=== PATIENT | male | born 1980 | race Caucasian/White ===

== ENCOUNTER 2016-07-18 20:23 | Inpatient (IN) | payer MEDICAID, SELFPAY ==
[2016-07-18] MEDS ORDERED: cefTRIAXone 1 GM in Sodium Chloride 0.9% 100 ML IV ONE (21:26)
[2016-07-18] MEDS ORDERED: HYDROmorphone 1 MG/ML Syringe IVPUSH ONE (21:26)
[2016-07-18] MEDS ORDERED: Ondansetron 4 MG/2 ML SDV IVPUSH ONE (21:26)
[2016-07-18] MEDS ORDERED: methylPREDNISolone Sodium Succinate 125 MG/2 ML SDV IVPUSH ONE (21:29)
[2016-07-18] MEDS ORDERED: Sodium Chloride 0.9% 1,000 ML IV SCH (21:30)
--- NOTE | 2016-07-18 21:36 | EDM.PDOC ---
ED HPI ENT - General Chief Complaint: ENT Problem Stated Complaint: SORE THROAT Time Seen by Provider: 07/18/16 21:18 Source of Information: Reports: Patient History Limitations: Reports: No limitations - History of Present Illness INITIAL COMMENTS - FREE TEXT/NARRATIVE: Patient is a 36-year-old male who presents ED complaining of sore throat. States he developed sore throat this Tuesday with worsening of symptoms since. He notes there is increased swelling to his tonsils as well as increased redness and a white spots in the back of his throat. He has a lot of pain with swallowing. He has no difficulty with controlling his secretions. He has had a poor appetite and has felt mildly feverish with intermittent chills. Denies any previous similar episodes. Nor has he been on any recent antibiotics. Denies any nausea/vomiting, shortness of breath, chest pain, abdominal pain, recent sick exposures, documented fever, diarrhea, stiff neck, ear pain, or any additional complaints. Patient has no pertinent past medical history and is currently taking no medications. Timing/Duration: Reports: Constant, Getting worse Severity: severe Location: Reports: throat Quality: Reports: Ache, Sharp, Throbbing Improves with: Reports: None Worsens with: Reports: Other (Swallowing) Associated Symptoms: Reports: fever/chills (Tactile fever), loss of appetite Treatments LIME SLAKER: Reports: Other (see below) (none stated) - Related Data Allergies/ADRs: Allergies Allergy/AdvReac Type Severity Reaction Status Date / Time No Known Allergies Allergy Verified 07/18/16 20:42 Home Meds: Home Meds . [No Known Home Meds] 07/18/16 [History] Past Medical History Psychiatric History: Reports: Anxiety, Depression Social & Family History - Tobacco Use Smoking Status *Q: Current Every Day Smoker Years of Tobacco use: 15 Packs/Tins Daily: 1 - Caffeine Use Caffeine Use: Reports: Coffee, Soda, Tea - Recreational Drug Use Recreational Drug Type: Reports: Marijuana/Hashish Recreational Drug Use Frequency: Socially ED ROS ENT - Review of Systems Review Of Systems: See Below Constitutional: Reports: fever, chills, malaise, weakness, fatigue, diaphoresis , decreased appetite HEENT: Reports: Throat pain Respiratory: Denies: shortness of breath, cough, sputum Cardiovascular: Reports: No symptoms Endocrine: Reports: fatigue GI/Abdominal: Reports: No symptoms Musculoskeletal: Denies: neck pain ED EXAM, ENT - Physical Exam Exam: See Below Exam Limited By: No limitations General Appearance: alert, WD/WN, moderate distress Eye Exam: bilateral eye: EOMI, PERRL Ears: normal external exam, hearing grossly normal Nose: normal inspection, normal mucousa, no blood Mouth/Throat: Throat pain, Throat swelling, Tonsillar erythema, Tonsillar exudates, Tonsillar swelling, Uvular deviation, Other (Paratonsillar abscess with uvula deviation to the right. Hot Potato voice) Head: atraumatic, normocephalic Neck: normal inspection, supple, non-tender, full range of motion Respiratory/Chest: no respiratory distress Cardiovascular: normal peripheral pulses, regular rate, rhythm GI/Abdominal: normal bowel sounds, soft, non tender Back: normal inspection Neurological: alert, oriented, CN II-XII intact, normal cognition, no motor/ sensory deficits Psychiatric: normal affect, normal mood Skin: Warm, Dry, Intact, Normal color, No rash Course - Vital Signs Last Recorded V/S: Last Vital Signs Temp 98.8 F 07/18/16 20:38 Pulse 96 07/18/16 20:38 Resp 20 07/18/16 20:38 BP 139/80 07/18/16 20:38 Pulse Ox 99 07/18/16 20:38 - Orders/Labs/Meds Orders: Active Orders 24 hr Category Date Time Status Admission Status [Patient Status] [ADT] Routine ADT 07/18/16 23:36 Active Cardiac Monitoring [RC] . DIRECTED Care 07/18/16 23:36 Active Peripheral IV Care [RC] . DIRECTED Care 07/18/16 21:26 Active Soft Tissue Neck w Cont [CT] Stat Exams 07/18/16 21:27 Taken CULTURE BLOOD [BC] Stat Lab 07/18/16 21:45 Received CULTURE BLOOD [] Stat Lab 07/18/16 21:50 Received CULTURE STREP A CONFIRMATION [RM] Stat Lab 07/18/16 20:46 Results STREP SCRN A RAPID W CULT CONF [] Stat Lab 07/18/16 20:46 Results Clindamycin Phosphate [Cleocin] 900 mg Med 07/18/16 23:38 Active Sodium Chloride 0.9% [Normal Saline] 100 ml IV ONETIME Sodium Chloride 0.9% [Normal Saline] 1,000 ml Med 07/18/16 21:30 Active IV ASDIRECTED Sodium Chloride 0.9% [Saline Flush] Med 07/18/16 21:26 Active 10 ml FLUSH ASDIRECTED PRN Blood Culture x2 Reflex Set [OM.PC] Stat Oth 07/18/16 21:32 Ordered Peripheral IV Insertion Adult [OM.PC] Stat Oth 07/18/16 21:25 Ordered Medication Orders Sodium Chloride (Normal Saline) 1,000 mls @ 150 mls/hr IV ASDIRECTED CECILIA Last Admin: 07/18/16 21:46 Dose: 150 mls/hr Clindamycin Phosphate 900 mg/ (Sodium Chloride) 106 mls @ 100 mls/hr IV ONETIME ONE Stop: 07/19/16 00:41 Last Admin: 07/18/16 23:48 Dose: 100 mls/hr Sodium Chloride (Saline Flush) 10 ml FLUSH ASDIRECTED PRN PRN Reason: Keep Vein Open Last Admin: 07/18/16 22:26 Dose: 10 ml Admin: 07/18/16 21:51 Dose: 10 ml Labs: Laboratory Tests 07/18/16 07/18/16 07/18/16 Range/Units 21:45 21:45 21:45 WBC 17.97 H (4.23-9.07) K/mm3 RBC 4.70 (4.63-6.08) M/mm3 Hgb 14.7 (13.7-17.5) gm/L Hct 42.6 (40.1-51.0) % MCV 90.6 (79.0-92.2) fl MCH 31.3 (25.7-32.2) pg MCHC 34.5 (32.2-35.5) g/dl RDW Std Deviation 41.9 (35.1-43.9) fL Plt Count 302 (163-337) K/mm3 MPV 9.9 (9.4-12.3) fl Neut % (Auto) 70.7 H (34.0-67.9) % Lymph % (Auto) 17.2 L (21.8-53.1) % [place] % (Auto) 10.9 (5.3-12.2) % Eos % (Auto) 0.8 (0.8-7.0) Baso % (Auto) 0.2 (0.1-1.2) % Neut # 12.70 H (1.78-5.38) K/mm3 Lymph # 3.09 (1.32-3.57) K/mm3 [place] # 1.96 H (0.30-0.82) K/mm3 Eos # 0.15 (0.04-0.54) K/mm3 Baso # 0.04 (0.01-0.08) K/mm3 Manual Slide Review Normal smear Sodium 139 (136-145) mEq/L Potassium 3.7 (3.5-5.1) mEq/L Chloride 103 (98-107) mEq/L Carbon Dioxide 26 (21-32) mEq/L Anion Gap 13.7 (5-15) BUN 6 L (7-18) mg/dL Creatinine 0.8 (0.7-1.3) mg/dL Est Cr Clr Drug Dosing 134.34 mL/min Estimated GFR (MDRD) > 60 (>60) mL/min BUN/Creatinine Ratio 7.5 L (14-18) Glucose 123 H (74-106) mg/dL Calcium 8.7 (8.5-10.1) mg/dL Total Bilirubin 0.3 (0.2-1.0) mg/dL AST 17 (15-37) U/L ALT 18 (16-63) U/L Alkaline Phosphatase 91 (46-116) U/L C-Reactive Protein 8.0 H* (<1.0) mg/dL Total Protein 7.0 (6.4-8.2) g/dl Albumin 3.3 L (3.4-5.0) g/dl Globulin 3.7 gm/dL Albumin/Globulin Ratio 0.9 L (1-2) Monoscreen Negative (NEGATIVE) Meds: Medications Generic Name Dose Route Start Last Admin Trade Name Freq PRN Reason Stop Dose Admin Sodium Chloride 1,000 mls @ 150 mls/hr 07/18/16 21:30 07/18/16 21:46 Normal Saline IV 150 mls/hr ASDIRECTED CECILIA Administration Clindamycin Phosphate 900 mg/ 106 mls @ 100 mls/hr 07/18/16 23:38 07/18/16 23 :48 Sodium Chloride IV 07/19/16 00:41 100 mls/hr ONETIME ONE Administration Sodium Chloride 10 ml 07/18/16 21:26 07/18/16 22:26 Saline Flush FLUSH 10 ml ASDIRECTED PRN Administration Keep Vein Open Discontinued Medications Generic Name Dose Route Start Last Admin Trade Name Fernando PRN Reason Stop Dose Admin Hydromorphone HCl 0.5 mg 07/18/16 21:26 07/18/16 21:49 Dilaudid IVPUSH 07/18/16 21:27 0.5 mg ONETIME ONE Administration Ceftriaxone Sodium 1 gm/ 100 mls @ 200 mls/hr 07/18/16 21:26 07/18/16 22:03 Sodium Chloride IV 07/18/16 21:55 200 mls/hr ONETIME ONE Administration Iopamidol 80 ml 07/18/16 22:08 07/18/16 22:26 Isovue-300 (61%) IVPUSH 07/18/16 22:09 80 ml ONETIME ONE Administration Methylprednisolone Sodium Succinate 125 mg 07/18/16 21:29 07/18/16 21:48 Solu-Medrol IVPUSH 07/18/16 21:30 125 mg ONETIME ONE Administration Ondansetron HCl 4 mg 07/18/16 21:26 07/18/16 21:47 Zofran IVPUSH 07/18/16 21:27 4 mg ONETIME ONE Administration - Re-Assessments/Exams Free Text/Narrative Re-Assessment/Exam: Patient appears to have paratonsillar abscess. Ordered a peripheral IV with normal saline at 50 mL per hour, Dilaudid 0.5 mg IVP, Zofran 4 mg IVP, ceftriaxone 1 g IV, solumedrol 125 mg IVP. Initial labs and studies include CBC , chem 14, CRP, soft tissue neck CT with IV contrast. Strep screen was obtained and was negative. Strep culture pending. 07/18/16 21:35 Labs reviewed: White blood cell count 17.97 with a left shift. Chemistry panel is essentially normal. CRP 8.0. Strep screen is negative. 07/18/16 23:[address] Del Angel ENT specialist at [facility]. States in most cases these tests the patient's do not need to have the abscess drained. It is hard to tell at this point without seeing the films and assessing the patient. In most cases once patient received IV antibiotics and steroids there condition stabilizes without any further complications. Best course is to admit the patient for close monitoring with IV antibiotics and steroids. If any further worsening symptoms to transport to the [place] ER for further evaluation and treatment. Suggested ordering monospot. [place] screen pending. Shared my discussion with Dr. Del Angel with the patient. Patient is very concerned about going home due to the risk of increased swelling and airway compromise. Thus will discuss admission with Dr. Hess. 07/18/16 23:[address] Hess he has accepted the patient. Due to concerns of airway compromise will admit patient to inpatient status for one on one monitoring. In addition will start patient on clindamycin 900 mg IVP. 07/19/16 00:01 Monoscreen Negative. Departure - Departure Time of Disposition: 23:38 Disposition: Admitted As Inpatient 68 Condition: fair Clinical Impression: Tonsillar abscess Instructions: Abscess Referrals: PCP,None [Primary Care Provider] - - My Orders Last 24 Hours: My Active Orders 07/18/16 20:46 STREP SCRN A RAPID W CULT CONF [RM] Stat 07/18/16 21:25 Peripheral IV Insertion Adult [OM.PC] Stat 07/18/16 21:26 Peripheral IV Care [RC] . DIRECTED Sodium Chloride 0.9% [Saline Flush] 10 ml FLUSH ASDIRECTED PRN 07/18/16 21:27 Soft Tissue Neck w Cont [CT] Stat 07/18/16 21:30 Sodium Chloride 0.9% [Normal Saline] 1,000 ml IV ASDIRECTED 07/18/16 21:32 Blood Culture x2 Reflex Set [OM.PC] Stat 07/18/16 21:45 CULTURE BLOOD [BC] Stat 07/18/16 21:50 CULTURE BLOOD [BC] Stat 07/18/16 23:36 Admission Status [Patient Status] [ADT] Routine Cardiac Monitoring [RC] . DIRECTED 07/18/16 23:38 Clindamycin Phosphate [Cleocin] 900 mg Sodium Chloride 0.9% [Normal Saline] 100 ml IV ONETIME - Assessment/Plan Last 24 Hours: My Active Orders 07/18/16 20:46 STREP SCRN A RAPID W CULT CONF [RM] Stat 07/18/16 21:25 Peripheral IV Insertion Adult [OM.PC] Stat 07/18/16 21:26 Peripheral IV Care [RC] . DIRECTED Sodium Chloride 0.9% [Saline Flush] 10 ml FLUSH ASDIRECTED PRN 07/18/16 21:27 Soft Tissue Neck w Cont [CT] Stat 07/18/16 21:30 Sodium Chloride 0.9% [Normal Saline] 1,000 ml IV ASDIRECTED 07/18/16 21:32 Blood Culture x2 Reflex Set [OM.PC] Stat 07/18/16 21:45 CULTURE BLOOD [BC] Stat 07/18/16 21:50 CULTURE BLOOD [BC] Stat 07/18/16 23:36 Admission Status [Patient Status] [ADT] Routine Cardiac Monitoring [RC] . DIRECTED 07/18/16 23:38 Clindamycin Phosphate [Cleocin] 900 mg Sodium Chloride 0.9% [Normal Saline] 100 ml IV ONETIME
[2016-07-18] MEDS: Sodium Chloride 0.9% 10 ML Syringe FLUSH PRN ×2 (21:51→22:26)
[2016-07-18] MEDS ORDERED: Iopamidol 612 MG/ML 100 ML Bottle IVPUSH ONE (22:08)
[2016-07-18] MEDS ORDERED: Clindamycin Phosphate 900 MG in Sodium Chloride 0.9% 100 ML IV ONE (23:38)
[2016-07-19] MEDS ORDERED: Acetaminophen 325 MG Tab PO PRN (00:29)
[2016-07-19] MEDS ORDERED: Acetaminophen/HYDROcodone 325-5 MG Tab PO PRN (00:29)
[2016-07-19] MEDS ORDERED: HYDROmorphone 0.5 MG/0.5 ML Syringe IVPUSH PRN (00:29)
[2016-07-19] MEDS ORDERED: Dextrose 5%-0.45% NaCl 1,000 ML IV SCH (00:30)
--- NOTE | 2016-07-19 00:30 | PCM.HP ---
H&P History of Present Illness - General Date of Service: 07/19/16 Admit Problem/Dx: Admission Diagnosis/Problem Admission Diagnosis/Problem Abscess of tonsil Source of Information: Patient, Provider, RN notes reviewed History Limitations: Reports: No limitations - History of Present Illness Initial Comments - Free Text/Narative: Patient is a 36 yo white male with past medical hx/o Anxiety and Depression who comes in with complaints of sore throat that started this past Tuesday and has since progressively gotten worse. He repost increased swelling and redness at the back of his throat. he has difficulty swallowing. He has full control with his oral secretions. His chief of complaints is associated with subjective fever and chills. He denies any nausea, vomiting, no skin rash. His initial lab work shows a CBC remarkable for WBC 17.97 with Neutrophils of 17.2. His chemistry is remarkable for BS 123, CRP 8 and Albumin 3.3. He is mono spot negative. Rapid strep strep screening is negative. His Neck CT scan shows large soft tissue edema of the palatine tonsil and uvula with developing 3 cm abscess n the left palatine tonsil w/o airway compromise. Patient was referred to me for admission related to Tonsilar Abscess. Tooth/Teeth Pain Score (Numeric/FACES): 8 - Related Data Allergies/Adverse Reactions: Allergies Allergy/AdvReac Type Severity Reaction Status Date / Time No Known Allergies Allergy Verified 07/18/16 20:42 Home Medications: Home Meds . [No Known Home Meds] 07/18/16 [History] Past Medical History Psychiatric History: Reports: Anxiety, Depression Social & Family History - Tobacco Use Smoking Status *Q: Current Every Day Smoker Years of Tobacco use: 15 Packs/Tins Daily: 1 - Caffeine Use Caffeine Use: Reports: Coffee, Soda, Tea - Recreational Drug Use Recreational Drug Type: Reports: Marijuana/Hashish Recreational Drug Use Frequency: Socially H&P Review of Systems - Review of Systems: Review Of Systems: See Below General: Reports: fever, chills, malaise, weakness, fatigue, diaphoresis, decreased appetite HEENT: Reports: sore throat Pulmonary: Denies: shortness of breath, cough Cardiovascular: Denies: chest pain, palpitations, dyspnea on exertion Gastrointestinal: Reports: Difficulty swallowing. Denies: Abdominal pain, Nausea, Vomiting Genitourinary: Reports: no symptoms Musculoskeletal: Denies: neck pain Skin: Denies: pruritis, rash, erythema, lesions Psychiatric: Denies: depression, anxiety, hallucinations Neurological: Denies: confusion, seizure, weakness Hematologic/Lymphatic: Reports: no symptoms Immunologic: Reports: no symptoms Exam - Exam Exam: See Below - Vital Signs Vital Signs: Last Vital Signs Temp 37.1 C 07/18/16 20:38 Pulse 96 07/18/16 20:38 Resp 20 07/18/16 20:38 BP 139/80 07/18/16 20:38 Pulse Ox 99 07/18/16 20:38 Weight: 77.111 kg - Exam General: alert, oriented, cooperative, mild distress HEENT: Conjunctiva clear, EACs clear, EOMI, Hearing intact, Mucosa moist & pink , Nares patent, Normal nasal septum, Posterior pharynx clear (partially able to view), Other (Tonsi: edema, exudates, erythema associated with uvular deviation) , PERRLA Neck: supple, trachea midline, 2+ carotid pulse wo bruit, full range of motion, lymphadenopathy (left neck), other Lungs: Clear to auscultation, Normal respiratory effort Cardiovascular: regular rate, regular rhythm Abdomen: normal bowel sounds, soft. No: organomegaly (Male) Exam: Deferred Rectal (Males) Exam: Deferred Back Exam: normal inspection, full range of motion Extremities: normal inspection, normal pulses. No: clubbing, cyanosis, calf tenderness, edema Peripheral Pulses: 3+: posterior tibial (L), posterior tibial (R), dorsalis pedis (L), dorsalis pedis (R) Skin: warm, dry, intact Neuro Extensive - Mental Status: oriented x3, normal cognition, memory intact Neuro Extensive - Motor, Sensory, Reflexes: CN II-XII intact, normal gait Psychiatric: alert, normal affect, normal mood - Patient Data Result Diagrams: 07/18/16 21:45 07/18/16 21:45 *Q Meaningful Use (ADM) - VTE *Q VTE Criteria *Q: - Stroke *Q Stroke Criteria *Q: - AMI *Q AMI Criteria *Q: Problem List Initiated/Reviewed/Updated: Yes Orders Last 24hrs: Active Orders 24 hr Category Date Time Status Clindamycin Phosphate [Cleocin] 900 mg Med 07/18/16 23:38 Active Sodium Chloride 0.9% [Normal Saline] 100 ml IV ONETIME Medication Orders Sodium Chloride (Normal Saline) 1,000 mls @ 150 mls/hr IV ASDIRECTED CECILIA Last Admin: 07/18/16 21:46 Dose: 150 mls/hr Clindamycin Phosphate 900 mg/ (Sodium Chloride) 106 mls @ 100 mls/hr IV ONETIME ONE Stop: 07/19/16 00:41 Last Admin: 07/18/16 23:48 Dose: 100 mls/hr Sodium Chloride (Saline Flush) 10 ml FLUSH ASDIRECTED PRN PRN Reason: Keep Vein Open Last Admin: 07/18/16 22:26 Dose: 10 ml Admin: 07/18/16 21:51 Dose: 10 ml Assessment/Plan Comment:: Assessment/Plan: Acute: Delfina-Tonsilar/Tonsilar Abscess - CT Scan: Large amount of soft tissues swelling of the left palatine tonsil and uvula with a developing 3 cm abscess in the left palatine tonsil. No airway compromise - No airway compromise by visual examination - Dysphagia with both solid and liquid - ED provider [place]: recommended patient be admitted for close monitoring and medically treatment with IV antibiotics and Steroids - IV Rocephin and Clindamycin, IV Steroids, Naproxen for Anti-inflammation - [place] spot negative - NPO except ice chips and sips of water +/- oral pills if tolerated - Follow up with ENT after discharge Leukocytosis w/ Neutrophils level of 12.70 - WBC 18.97 2/2 Above - CRP is 8 Hyperglycemia - BS 123 - Likely 2/2 stress - Will monitor Tobacco Dependence - Smoke 1ppd - Nicotine Patch daily Chronic: Anxiety and Depression Plan: Admit to ICU for close monitoring He is high risk for airway compromise due to tonsilar abscess Routine AM Labs RT consult-monitor for airway SW/CM for d/c planning Code status:1
[2016-07-19] MEDS ORDERED: Albuterol/Ipratropium 3.0-0.5 MG/3 ML Neb Soln NEB PRN (00:31)
[2016-07-19] MEDS ORDERED: Bisacodyl 5 MG Tab PO PRN (00:31)
[2016-07-19] MEDS ORDERED: Promethazine 12.5 MG in Sodium Chloride 0.9% 50 ML IV PRN (00:31)
[2016-07-19] MEDS ORDERED: Ondansetron 4 MG/2 ML SDV IV PRN (00:31)
[2016-07-19] MEDS ORDERED: Temazepam 15 MG Cap PO PRN (00:31)
[2016-07-19] MEDS: Dextrose 5%-0.9% NaCl 1,000 ML IV SCH ×2 (03:30→17:49)
[2016-07-19] MEDS: Clindamycin Phosphate 600 MG in Sodium Chloride 0.9% 100 ML IV SCH ×3 (04:30→19:36)
--- NOTE | 2016-07-19 08:40 | PCM.PN ---
- General Info Date of Service: 07/19/16 Admission Dx/Problem (Free Text): Admission Diagnosis/Problem Admission Diagnosis/Problem Abscess of tonsil Subjective Update: Follow Up Functional Status: Reports: pain controlled, ambulating, urinating. Denies: new symptoms - Review of Systems General: Denies: fever, weakness, fatigue, malaise, chills HEENT: Reports: other (dysphagia). Denies: sore throat Pulmonary: Denies: shortness of breath Cardiovascular: Denies: chest pain, palpitations, dyspnea on exertion Gastrointestinal: Denies: Abdominal pain Genitourinary: Reports: no symptoms Musculoskeletal: Reports: no symptoms Skin: Denies: bruising, pruritis, rash Neurological: Denies: confusion Psychiatric: Denies: depression, anxiety, hallucinations Systems Review Comment:: No overnight or acute issues. He has no new complaints. No trouble with breathing or respiration. - Patient Data Vitals - most recent: Last Vital Signs Temp 37.1 C 07/19/16 04:00 Pulse 52 L 07/19/16 04:00 Resp 16 07/19/16 04:00 BP 119/70 07/19/16 04:00 Pulse Ox 99 07/19/16 04:00 Weight - most recent: 77.1 kg I&O - last 24 hours: Intake & Output 07/18/16 07/19/16 07/19/16 22:59 06:59 14:59 Intake Total 1350 Output Total 0 Balance 1350 Lab Results last 24 hrs: Laboratory Results - last 24 hr 07/19/16 07/19/16 Range/Units 04:19 04:19 WBC 16.12 H (4.23-9.07) K/mm3 RBC 4.93 (4.63-6.08) M/mm3 Hgb 15.4 (13.7-17.5) gm/L Hct 44.9 (40.1-51.0) % MCV 91.1 (79.0-92.2) fl MCH 31.2 (25.7-32.2) pg MCHC 34.3 (32.2-35.5) g/dl RDW Std Deviation 42.6 (35.1-43.9) fL Plt Count 293 (163-337) K/mm3 MPV 10.2 (9.4-12.3) fl Neut % (Auto) 91.5 H (34.0-67.9) % Lymph % (Auto) 7.4 L (21.8-53.1) % [place] % (Auto) 0.9 L (5.3-12.2) % Eos % (Auto) 0 L (0.8-7.0) Baso % (Auto) 0.1 (0.1-1.2) % Neut # 14.75 H (1.78-5.38) K/mm3 Lymph # 1.19 L (1.32-3.57) K/mm3 [place] # 0.15 L (0.30-0.82) K/mm3 Eos # 0.00 L (0.04-0.54) K/mm3 Baso # 0.01 (0.01-0.08) K/mm3 Manual Slide Review Abnormal smear Sodium 139 (136-145) mEq/L Potassium 4.1 (3.5-5.1) mEq/L Chloride 105 (98-107) mEq/L Carbon Dioxide 25 (21-32) mEq/L Anion Gap 13.1 (5-15) BUN 6 L (7-18) mg/dL Creatinine 0.8 (0.7-1.3) mg/dL Est Cr Clr Drug Dosing 134.34 mL/min Estimated GFR (MDRD) > 60 (>60) mL/min BUN/Creatinine Ratio 7.5 L (14-18) Glucose 161 H (74-106) mg/dL Calcium 8.6 (8.5-10.1) mg/dL Magnesium 2.0 (1.8-2.4) mg/dl C-Reactive Protein 8.4 H* (<1.0) mg/dL Med Orders - Current: Current Medications Acetaminophen (Tylenol) 650 mg PO Q4H PRN PRN Reason: Pain (Mild 1-3)/fever Acetaminophen/Hydrocodone Bitart ([place] 325-5 Mg) 1 tab PO Q4H PRN PRN Reason: Pain (moderate 4-6) Albuterol/Ipratropium (Duoneb 3.0-0.5 Mg/3 Ml) 3 ml NEB Q4H PRN PRN Reason: Shortness Of Breath/wheezing Bisacodyl (Dulcolax) 5 mg PO DAILY PRN PRN Reason: Constipation Enoxaparin Sodium (Lovenox) 40 mg SUBCUT DAILY [facility] Hydromorphone HCl (Dilaudid) 0.5 mg IVPUSH Q2H PRN PRN Reason: Pain (severe 7-10) Stop: 07/23/16 23:59 Sodium Chloride (Normal Saline) 1,000 mls @ 150 mls/hr IV ASDIRECTED [facility] Last Admin: 07/18/16 21:46 Dose: 150 mls/hr Dextrose/Sodium Chloride (Dextrose 5%-1/2 Ns) 1,000 mls @ 125 mls/hr IV ASDIRECTED [facility] Promethazine HCl 12.5 mg/ (Sodium Chloride) 50.5 mls @ 100 mls/hr IV Q6H PRN PRN Reason: Nausea/Vomiting Clindamycin Phosphate 600 mg/ (Sodium Chloride) 104 mls @ 100 mls/hr IV Q6H [facility] Last Admin: 07/19/16 04:30 Dose: 100 mls/hr Dextrose/Sodium Chloride (Dextrose 5%-Normal Saline) 1,000 mls @ 125 mls/hr IV ASDIRECTED [facility] Last Admin: 07/19/16 03:30 Dose: 125 mls/hr Ceftriaxone Sodium 2 gm/ (Sodium Chloride) 100 mls @ 200 mls/hr IV Q24H [facility] Methylprednisolone Sodium Succinate (Solu-Medrol) 125 mg IVPUSH DAILY [facility] Miscellaneous Information (Remove Patch) 1 ea TRDERM DAILY [facility] Naproxen (Naprosyn) 500 mg PO Q12HR [facility] Nicotine (Habitrol) 21 mg TRDERM DAILY [facility] Ondansetron HCl (Zofran) 4 mg IV Q6H PRN PRN Reason: Nausea/Vomiting Saccharomyces Boulardii (Florastor) 250 mg PO TID [facility] Senna/Docusate Sodium (Senna Plus) 1 tab PO BID PRN PRN Reason: Constipation Sodium Chloride (Saline Flush) 10 ml FLUSH ASDIRECTED PRN PRN Reason: Keep Vein Open Last Admin: 07/18/16 22:26 Dose: 10 ml Temazepam (Restoril) 30 mg PO BEDTIME PRN PRN Reason: Sleep Discontinued Medications Ceftriaxone Sodium (Rocephin) 2 gm IV Q24H [facility] Hydromorphone HCl (Dilaudid) 0.5 mg IVPUSH ONETIME ONE Stop: 07/18/16 21:27 Last Admin: 07/18/16 21:49 Dose: 0.5 mg Ceftriaxone Sodium 1 gm/ (Sodium Chloride) 100 mls @ 200 mls/hr IV ONETIME ONE Stop: 07/18/16 21:55 Last Admin: 07/18/16 22:03 Dose: 200 mls/hr Clindamycin Phosphate 900 mg/ (Sodium Chloride) 106 mls @ 100 mls/hr IV ONETIME ONE Stop: 07/19/16 00:41 Last Admin: 07/18/16 23:48 Dose: 100 mls/hr Iopamidol (Isovue-300 (61%)) 80 ml IVPUSH ONETIME ONE Stop: 07/18/16 22:09 Last Admin: 07/18/16 22:26 Dose: 80 ml Methylprednisolone Sodium Succinate (Solu-Medrol) 125 mg IVPUSH ONETIME ONE Stop: 07/18/16 21:30 Last Admin: 07/18/16 21:48 Dose: 125 mg Ondansetron HCl (Zofran) 4 mg IVPUSH ONETIME ONE Stop: 07/18/16 21:27 Last Admin: 07/18/16 21:47 Dose: 4 mg - Exam General: alert, oriented, cooperative, no acute distress HEENT: Pupils equal, Pupils reactive, EOMI, Mucous membr. moist/pink Neck: supple, trachea midline, no JVD, no thyromegaly, lymphadenopathy Lungs: Clear to auscultation, Normal respiratory effort Cardiovascular: regular rate, regular rhythm Abdomen: bowel sounds present, soft, no tenderness, no distension (Male) Exam: Deferred Back Exam: normal inspection, full range of motion Extremities: no edema, normal pulses, no tenderness/swelling, no clubbing, no cyanosis, no calf tenderness Peripheral Pulses: 3+: posterior tibial (L), posterior tibial (R), dorsalis pedis (L), dorsalis pedis (R) Skin: warm, dry, intact Neurological: no new focal deficit Psy/Mental Status: alert, normal affect, normal mood - Problem List Review Problem List Initiated/Reviewed/Updated: Yes - My Orders Last 24 Hours: My Active Orders 07/19/16 00:29 Up With Assistance [RC] ASDIRECTED Up ad Dora [RC] ASDIRECTED Acetaminophen [Tylenol] 650 mg PO Q4H PRN Acetaminophen/HYDROcodone [[place] 325-5 MG] 1 tab PO Q4H PRN HYDROmorphone [Dilaudid] 0.5 mg IVPUSH Q2H PRN Resuscitation Status Routine 07/19/16 00:30 Oxygen Therapy [RC] ASDIRECTED VTE/DVT Education [RC] DAILY Vital Signs [RC] Q4HR Dextrose 5%-0.45% NaCl [Dextrose 5%-1/2 NS] 1,000 ml IV ASDIRECTED 07/19/16 00:31 RT Aerosol Therapy [RC] ASDIRECTED Albuterol/Ipratropium [DuoNeb 3.0-0.5 MG/3 ML] 3 ml NEB Q4H PRN Bisacodyl [Dulcolax] 5 mg PO DAILY PRN Docusate Sodium/Sennosides [Senna Plus] 1 tab PO BID PRN Ondansetron [Zofran] 4 mg IV Q6H PRN Promethazine [Phenergan] 12.5 mg Sodium Chloride 0.9% [Normal Saline] 50 ml IV Q6H Temazepam [Restoril] 30 mg PO BEDTIME PRN 07/19/16 00:32 Consult to Case Management [CONS] Routine Consult to Payment Specialist [CONS] Routine Respiratory Care Assess and Treatment [CONS] Routine 07/19/16 01:00 Dextrose 5%-0.9% NaCl [Dextrose 5%-Normal Saline] 1,000 ml IV ASDIRECTED 07/19/16 05:30 Clindamycin Phosphate [Cleocin] 600 mg Sodium Chloride 0.9% [Normal Saline] 100 ml IV Q6H 07/19/16 09:00 Enoxaparin [Lovenox] 40 mg SUBCUT DAILY Naproxen [Naprosyn] 500 mg PO Q12HR Nicotine [Habitrol] 21 mg TRDERM DAILY Saccharomyces Boulardii [Florastor] 250 mg PO TID methylPREDNISolone Sod Succ [Solu-MEDROL] 125 mg IVPUSH DAILY 07/19/16 21:00 cefTRIAXone [Rocephin] 2 gm Sodium Chloride 0.9% [Normal Saline] 100 ml IV Q24H 07/19/16 Dinner Nothing per Oral Now Diet [DIET] 07/20/16 05:11 BASIC METABOLIC PANEL,BMP [CHEM] AM C-REACTIVE PROTEIN [CHEM] AM CBC WITH AUTO DIFF [HEME] AM MAGNESIUM [CHEM] AM 07/20/16 09:00 Remove Patch 1 ea TRDERM DAILY 07/21/16 05:11 BASIC METABOLIC PANEL,BMP [CHEM] AM C-REACTIVE PROTEIN [CHEM] AM CBC WITH AUTO DIFF [HEME] AM MAGNESIUM [CHEM] AM 07/22/16 05:11 BASIC METABOLIC PANEL,BMP [CHEM] AM C-REACTIVE PROTEIN [CHEM] AM CBC WITH AUTO DIFF [HEME] AM MAGNESIUM [CHEM] AM - Plan Plan:: Assessment/Plan: Acute: Delfina-Tonsilar/Tonsilar Abscess, Improving, has more visibility with airway compared to yesterday - CT Scan: Large amount of soft tissues swelling of the left palatine tonsil and uvula with a developing 3 cm abscess in the left palatine tonsil. No airway compromise - No airway compromise by visual examination - Dysphagia with both solid and liquid - ED provider consulted ENT in [place]: recommended patient be admitted for close monitoring and medically treatment with IV antibiotics and Steroids - IV Rocephin and Clindamycin, IV Steroids, Naproxen for Anti-inflammation - [place] spot negative - NPO except ice chips and sips of water +/- oral pills if tolerated - Follow up with ENT after discharge Leukocytosis w/ Neutrophils level of 12.70 - WBC 18.97---> 16.12 (he is getting steroids) - CRP is 8 ----> 8.4 Hyperglycemia - BS 123 ----> 161 - Likely 2/2 stress vs steroids - Will monitor Tobacco Dependence - Smoke 1ppd - Nicotine Patch daily Chronic: Anxiety and Depression Plan: He is clinically stable Transfer to Med-Surg w/ Tele Clear liquids and advance as tolerated Routine AM Labs RT consult-monitor for airway SW/CM for d/c planning Possible d/c in 1-2 days Code status:1
[2016-07-19] MEDS ORDERED: Enoxaparin 30 MG/0.3 ML Syringe SUBCUT SCH (09:00)
[2016-07-19] MEDS ORDERED: Saccharomyces Boulardii (Probiotic) 250 MG Cap PO SCH (09:00)
[2016-07-19] MEDS: Nicotine 21 MG/24 Hr Patch TRDERM SCH (10:14)
[2016-07-19] MEDS: methylPREDNISolone Sodium Succinate 125 MG/2 ML SDV IVPUSH SCH (10:15)
[2016-07-19] MEDS: Enoxaparin 40 MG/0.4 ML Syringe SUBCUT SCH (10:15)
[2016-07-19] MEDS: Naproxen 500 MG Tab PO SCH ×2 (10:15→21:26)
--- NOTE | 2016-07-19 11:14 | CT ---
CT neck Technique: Multiple axial sections through the neck were obtained. Intravenous contrast was utilized. Reconstructed coronal and sagittal images were reviewed. Comparison: No previous study. Findings: Soft tissue swelling identified within the left peritonsillar region. Diffuse soft tissue swelling seen within the uvula. Low-density is noted within the uvula as well as to the left side of the palatine area and posterior oropharynx. Largest low-density finding lies within the left peritonsillar region measuring about 3.3 cm in size. Low-density areas likely represent phlegmon and possible early abscess. Multiple lymph nodes seen within the neck which are likely reactive from the peritonsillar and oral infection. Submandibular and parotid salivary glands are unremarkable. Minimal low-density area noted within the thyroid gland possibly due to small nodule versus artifact. This is felt to be incidental. Bone window settings were reviewed which appear within normal limits for the patient's age. Impression: 1. Soft tissue swelling in the area of the left peritonsillar region with large amount of soft tissue swelling seen within the uvula. Low density is seen within the left peritonsillar region as well as within the uvula as well as within the posterior oropharynx which is felt compatible with phlegmon and possibly early abscess formation. 2. Multiple lymph nodes which are likely reactive and due to the peritonsillar and oral infection. Diagnostic code #5 Agree with preliminary report issued by [employer] (preliminary report dictated on 07/18/16, 11:48 PM Central Time)
[2016-07-19] MEDS ORDERED: cefTRIAXone 2 GM Vial IV SCH (21:00)
[2016-07-19] MEDS ORDERED: cefTRIAXone 2 GM in Sodium Chloride 0.9% 100 ML IV SCH (21:00)
[2016-07-19] MEDS: Saccharomyces Boulardii (Probiotic) 250 MG Cap PO SCH (21:25)
[2016-07-20] MEDS: Clindamycin Phosphate 600 MG in Sodium Chloride 0.9% 100 ML IV SCH ×4 (00:26→10:34)
[2016-07-20] MEDS: Dextrose 5%-0.9% NaCl 1,000 ML IV SCH (05:23)
--- NOTE | 2016-07-20 06:51 | PCM.DCSUM1 ---
Discharge Summary - Hospital Course Brief History: Patient is a 36 yo white male with past medical hx/o Anxiety and Depression who comes in with complaints of sore throat progressively gotten worse and was found to have tonsillar abscess. - Discharge Data Discharge Date: 07/20/16 Discharge Disposition: Home, Self-Care 01 Condition: Good - Discharge Diagnosis/Problem(s) (1) Tonsillar abscess SNOMED Code(s): 10587830 ICD Code: J36 - PERITONSILLAR ABSCESS Status: Acute (2) Nicotine dependence SNOMED Code(s): 28039959 ICD Code: F17.200 - NICOTINE DEPENDENCE, UNSPECIFIED, UNCOMPLICATED Status : Acute Qualifiers: Nicotine product type: cigarettes - Patient Summary/Data Operative Procedure(s) Performed: None Complications: None Consults: Consultations 07/19/16 00:32 Consult to Case Management [CONS] Routine Consult to Bridge Instructor [CONS] Routine Respiratory Care Assess and Treatment [CONS] Routine Hospital Course: Patient was primarily admitted for tonsillar abscess noted on CT scan. ENT (Dr. Del Angel) was consulted from [place] and patient was placed on IV ATB, Steroids and Supportive care. Patient improved on this regimen. His hospital course uncomplicated. He is now ready for discharge. He will continue with oral clindamycin 300 mg po Q6 along with probiotic for 6 more days. he will also leave with medrol dose pack and naproxen for anti- inflammatory/edema agent. Patient was advised to stop smoking for now until his infection resolves. He was further advised to follow up with ENT as scheduled. Patient expressed understanding an din agreement with the plans as discussed above. All questions were answered. - Patient Instructions Diet: Usual Diet as Tolerated Activity: As Tolerated Driving: May Drive Today Showering/Bathing: May Shower Notify Provider of: Fever, Increased Pain, Swelling and Redness, Nausea and/or Vomiting Other/Special Instructions: - Please take all medications as directed. - Quit smoking. - Keep your scheduled vist with ENT and follow up appointment with your doctor - Discharge Plan Prescriptions/Med Rec: Acetaminophen/HYDROcodone [[place] 325-5 MG] 1 tab PO Q4H #15 tablet Clindamycin HCl [Cleocin] 450 mg PO Q6H #24 cap Lactobac Cmb #3/Fos/Pantethine [Probiotic & Acidophilus] 1 each PO TID #18 capsule Naproxen Sodium [Naproxen Sodium ER] 500 mg PO BID #10 tablet.er Nicotine [Habitrol] 21 mg TRDERM DAILY 15 Days Omeprazole 20 mg PO BIDAC #10 cap.cr methylPREDNISolone [Medrol] 4 mg PO ASDIRECTED #1 dosepk Home Medications: Home Meds Acetaminophen/HYDROcodone [[place] 325-5 MG] 1 tab PO Q4H #15 tablet 07/20/16 [Rx] Clindamycin HCl [Cleocin] 450 mg PO Q6H #24 cap 07/20/16 [Rx] Lactobac Cmb #3/Fos/Pantethine [Probiotic & Acidophilus] 1 each PO TID #18 capsule 07/20/16 [Rx] Naproxen Sodium [Naproxen Sodium ER] 500 mg PO BID #10 tablet.er 07/20/16 [Rx] Nicotine [Habitrol] 21 mg TRDERM DAILY 15 Days 07/20/16 [Rx] Omeprazole 20 mg PO BIDAC #10 cap.cr 07/20/16 [Rx] methylPREDNISolone [Medrol] 4 mg PO ASDIRECTED #1 dosepk 07/20/16 [Rx] Patient Handouts: Smoking Cessation, Tips for Success, [id number], Abscess Referrals: Bradley Del Angel MD [Ordering Only Provider] - 08/02/16 8:00 am (Please show up 15 mins early. ) PCP,Kofi [Primary Care Provider] - 07/28/16 12:15 pm (Kylie Robles. Please show up 15 mins early. ) - Discharge Summary/Plan Comment DC Time >30 min.: No Discharge Summary/Plan Comment: Discharge to Home - General Info Date of Service: 07/20/16 Admission Dx/Problem (Free Text: Admission Diagnosis/Problem Admission Diagnosis/Problem Abscess of tonsil Subjective Update: Follow Up Functional Status: Reports: pain controlled, tolerating diet, ambulating, urinating. Denies: new symptoms - Review of Systems General: Denies: fever, weakness, fatigue, malaise, chills HEENT: Reports: no symptoms Pulmonary: Denies: shortness of breath, pleuritic chest pain, cough, wheezing Cardiovascular: Denies: chest pain, palpitations, dyspnea on exertion, edema Gastrointestinal: Denies: Abdominal pain, Difficulty swallowing, Nausea, Vomiting Genitourinary: Reports: no symptoms Musculoskeletal: Denies: neck pain Skin: Denies: cyanosis, bruising, pruritis, rash Neurological: Denies: confusion, weakness Psychiatric: Denies: depression, anxiety, hallucinations Systems Review Comment: No overnight or acute issues. He slept well. He has no new complaints. - Patient Data Vitals - Most Recent: Last Vital Signs Temp 36.8 C 07/20/16 04:00 Pulse 58 L 07/20/16 04:00 Resp 14 07/20/16 04:00 BP 115/72 07/20/16 04:00 Pulse Ox 99 07/20/16 04:00 Weight - Most Recent: 72.348 kg I&O - Last 24 hours: Intake & Output 07/19/16 07/19/16 07/20/16 14:59 22:59 06:59 Intake Total 690 1850 2411 Balance 690 1850 2411 Lab Results - Last 24 hrs: Laboratory Results - last 24 hr 07/19/16 07/20/16 Range/Units 04:19 04:49 WBC 16.12 H 20.02 H (4.23-9.07) K/mm3 RBC 4.93 4.83 (4.63-6.08) M/mm3 Hgb 15.4 15.0 (13.7-17.5) gm/L Hct 44.9 44.1 (40.1-51.0) % MCV 91.1 91.3 (79.0-92.2) fl MCH 31.2 31.1 (25.7-32.2) pg MCHC 34.3 34.0 (32.2-35.5) g/dl RDW Std Deviation 42.6 42.3 (35.1-43.9) fL Plt Count 293 281 (163-337) K/mm3 MPV 10.2 10.8 (9.4-12.3) fl Neut % (Auto) 91.5 H 75.1 H (34.0-67.9) % Lymph % (Auto) 7.4 L 15.7 L (21.8-53.1) % [place] % (Auto) 0.9 L 8.9 (5.3-12.2) % Eos % (Auto) 0 L 0 L (0.8-7.0) Baso % (Auto) 0.1 0.1 (0.1-1.2) % Neut # 14.75 H 15.02 H (1.78-5.38) K/mm3 Lymph # 1.19 L 3.15 (1.32-3.57) K/mm3 [place] # 0.15 L 1.78 H (0.30-0.82) K/mm3 Eos # 0.00 L 0.01 L (0.04-0.54) K/mm3 Baso # 0.01 0.02 (0.01-0.08) K/mm3 Manual Slide Review Abnormal smear Abnormal smear BELTRAN Results - Last 24 hrs: Microbiology 07/19/16 18:19 Influenza Type A Antigen Screen - Final Nasal, Right NEGATIVE INFLUENZA A VIRUS AG Influenza Type B Antigen Screen - Final NEGATIVE INFLUENZA B VIRUS AG Med Orders - Current: Current Medications Acetaminophen (Tylenol) 650 mg PO Q4H PRN PRN Reason: Pain (Mild 1-3)/fever Acetaminophen/Hydrocodone Bitart ([place] 325-5 Mg) 1 tab PO Q4H PRN PRN Reason: Pain (moderate 4-6) Albuterol/Ipratropium (Duoneb 3.0-0.5 Mg/3 Ml) 3 ml NEB Q4H PRN PRN Reason: Shortness Of Breath/wheezing Bisacodyl (Dulcolax) 5 mg PO DAILY PRN PRN Reason: Constipation Enoxaparin Sodium (Lovenox) 40 mg SUBCUT DAILY [facility] Last Admin: 07/19/16 10:15 Dose: 40 mg Hydromorphone HCl (Dilaudid) 0.5 mg IVPUSH Q2H PRN PRN Reason: Pain (severe 7-10) Stop: 07/23/16 23:59 Dextrose/Sodium Chloride (Dextrose 5%-1/2 Ns) 1,000 mls @ 125 mls/hr IV ASDIRECTED [facility] Promethazine HCl 12.5 mg/ (Sodium Chloride) 50.5 mls @ 100 mls/hr IV Q6H PRN PRN Reason: Nausea/Vomiting Clindamycin Phosphate 600 mg/ (Sodium Chloride) 104 mls @ 100 mls/hr IV Q6H [facility] Last Admin: 07/20/16 05:22 Dose: 100 mls/hr Dextrose/Sodium Chloride (Dextrose 5%-Normal Saline) 1,000 mls @ 125 mls/hr IV ASDIRECTED [facility] Last Admin: 07/20/16 05:23 Dose: 125 mls/hr Ceftriaxone Sodium 2 gm/ (Sodium Chloride) 100 mls @ 200 mls/hr IV Q24H [facility] Last Admin: 07/19/16 21:25 Dose: 200 mls/hr Methylprednisolone Sodium Succinate (Solu-Medrol) 125 mg IVPUSH DAILY [facility] Last Admin: 07/19/16 10:15 Dose: 125 mg Miscellaneous Information (Remove Patch) 1 ea TRDERM DAILY [facility] Naproxen (Naprosyn) 500 mg PO Q12HR [facility] Last Admin: 07/19/16 21:26 Dose: 500 mg Nicotine (Habitrol) 21 mg TRDERM DAILY [facility] Last Admin: 07/19/16 10:14 Dose: 21 mg Ondansetron HCl (Zofran) 4 mg IV Q6H PRN PRN Reason: Nausea/Vomiting Saccharomyces Boulardii (Florastor) 250 mg PO BID [facility] Last Admin: 07/19/16 21:25 Dose: 250 mg Senna/Docusate Sodium (Senna Plus) 1 tab PO BID PRN PRN Reason: Constipation Sodium Chloride (Saline Flush) 10 ml FLUSH ASDIRECTED PRN PRN Reason: Keep Vein Open Last Admin: 07/18/16 22:26 Dose: 10 ml Temazepam (Restoril) 30 mg PO BEDTIME PRN PRN Reason: Sleep Last Admin: 07/19/16 21:35 Dose: 30 mg Discontinued Medications Ceftriaxone Sodium (Rocephin) 2 gm IV Q24H [facility] Hydromorphone HCl (Dilaudid) 0.5 mg IVPUSH ONETIME ONE Stop: 07/18/16 21:27 Last Admin: 07/18/16 21:49 Dose: 0.5 mg Sodium Chloride (Normal Saline) 1,000 mls @ 150 mls/hr IV ASDIRECTED [facility] Last Admin: 07/18/16 21:46 Dose: 150 mls/hr Ceftriaxone Sodium 1 gm/ (Sodium Chloride) 100 mls @ 200 mls/hr IV ONETIME ONE Stop: 07/18/16 21:55 Last Admin: 07/18/16 22:03 Dose: 200 mls/hr Clindamycin Phosphate 900 mg/ (Sodium Chloride) 106 mls @ 100 mls/hr IV ONETIME ONE Stop: 07/19/16 00:41 Last Admin: 07/18/16 23:48 Dose: 100 mls/hr Iopamidol (Isovue-300 (61%)) 80 ml IVPUSH ONETIME ONE Stop: 07/18/16 22:09 Last Admin: 07/18/16 22:26 Dose: 80 ml Methylprednisolone Sodium Succinate (Solu-Medrol) 125 mg IVPUSH ONETIME ONE Stop: 07/18/16 21:30 Last Admin: 07/18/16 21:48 Dose: 125 mg Ondansetron HCl (Zofran) 4 mg IVPUSH ONETIME ONE Stop: 07/18/16 21:27 Last Admin: 07/18/16 21:47 Dose: 4 mg Saccharomyces Boulardii (Florastor) 250 mg PO TID CEC[facility]IA Last Admin: 07/19/16 10:15 Dose: 250 mg - Exam General: Reports: alert, oriented, cooperative, no acute distress HEENT: Reports: Pupils equal, Pupils reactive, EOMI, Mucous membr. moist/pink, Other (Now able to visualize uvula, edema and erythema, no airway compromise) Neck: Reports: supple, trachea midline, no JVD, lymphadenopathy Lungs: Reports: Clear to auscultation, Normal respiratory effort Cardiovascular: Reports: regular rate, regular rhythm Abdomen: Reports: bowel sounds present, soft, no tenderness, no distension (Male) Exam: Deferred Rectal (Males) Exam: Deferred Back Exam: Reports: normal inspection, decreased range of motion Extremities: Reports: no edema, normal pulses, no tenderness/swelling, no clubbing, no cyanosis, no calf tenderness Skin: Reports: warm, dry, intact Neurological: Reports: no new focal deficit Psy/Mental Status: Reports: alert, normal affect, normal mood *Q Meaningful Use (DIS) - VTE *Q VTE Criteria *Q: - Stroke *Q Stroke Criteria *Q: - AMI *Q AMI Criteria *Q:
[2016-07-20] MEDS: Enoxaparin 40 MG/0.4 ML Syringe SUBCUT SCH (08:44)
[2016-07-20] MEDS: Saccharomyces Boulardii (Probiotic) 250 MG Cap PO SCH (08:44)
[2016-07-20] MEDS: Naproxen 500 MG Tab PO SCH (08:44)
[2016-07-20] MEDS: Nicotine 21 MG/24 Hr Patch TRDERM SCH (08:44)
[2016-07-20] MEDS: methylPREDNISolone Sodium Succinate 125 MG/2 ML SDV IVPUSH SCH (08:45)
[2016-07-20 11:27] VITALS: BP 117/73
== END 2016-07-20 13:35 | disposition home or self-care (01) | DRG 153 ==
LOC: JD.ED 20:23 → JD.ICU 23:36 → OBSVTOIN 23:36 → INTOOBSV 23:36 → JD.MS 07-19 17:04 → JD.ICU 07-19 17:04 → JD.MS 07-20 09:25
PROVIDERS: ADMIT Internal Medicine; ATTEND Internal Medicine
DX: J36 Peritonsillar abscess (principal); R73.9 Hyperglycemia, unspecified; F32.9 Major depressive disorder, single episode, unspecified; F41.9 Anxiety disorder, unspecified; F17.200 Nicotine dependence, unspecified, uncomplicated
CPT/HCPCS: 36415; 70491; 70491-26; 80048; 80053; 83735; 85025; 86140; 86308; 87040; 87070; 87081; 87430; 87502; 87503; 87804; 96361; 96365; 96367; 96375; 99238; 99285; 99285-25; A9270-GY; J0696; J1170; J1650; J2405; J2930; J7030; J7040; J7042; J7050; Q9967